=== PATIENT | female | born 1985 | race Caucasian/White ===

== ENCOUNTER 2016-10-19 23:53 | Emergency (ER) | payer SELFPAY ==
[~2016-10-19] VITALS: Ht 175.3 cm; Wt 94.0 kg
[2016-10-20] MEDS ORDERED: ONDANSETRON HCL 4MG/2ML VIAL IV STA (00:13)
[2016-10-20] MEDS ORDERED: SODIUM CHLORIDE 0.9% 1,000 ML IV ONE ×2 (00:13→01:19)
[2016-10-20] MEDS ORDERED: VISCOUS LIDOCAINE 2% 15 ML UDC PO STA (00:13)
[2016-10-20] MEDS ORDERED: MAGNESIUM/ALUMINUM HYDROXIDE/SIMETHICONE 30ML UDC PO STA (00:13)
[2016-10-20 00:41] LABS: BASOPHILS % 0.9 % (0.0-2.0); EOSINOPHILS % 1.7 % (0.0-5.0); HEMATOCRIT. 36.8 % (36.0-48.0); HEMOGLOBIN. 12.2 g/dL (12.0-16.0); LYMPHOCYTES % 24.4 % (20.0-50.0); MEAN CORPUSCULAR HEMOGLOBIN 27.3 pg (28.0-32.0); MEAN CORPUSCULAR VOLUME 82.1 fL (81.0-99.0); MEAN PLATELET VOLUME 9.1 fl (7.4-10.4); MONOCYTES % 9.7 % (2.0-8.0); NEUTROPHILS % 63.3 % (40.0-76.0); PLATELET 233 x1000/uL (130-400); RED BLOOD CELL COUNT 4.49 mill/uL (4.2-5.4); RED CELL DISTRIBUTION WIDTH 14.9 % (11.6-14.6)
[2016-10-20 00:46] LABS: CHLORIDE 107 mEq/L (98-107)
[2016-10-20 00:54] LABS: CARBON DIOXIDE 23 mEq/L (21-32); CREATINE KINASE 170 IU/L (26-192); ETHANOL BLOOD 165 mg/dL
[2016-10-20 00:59] LABS: AMMONIA 42 uMol/L (<32)
[2016-10-20 01:02] LABS: HCG SCREEN NEGATIVE
[2016-10-20] MEDS ORDERED: LACTULOSE 20G/30ML UDC PO NR (01:30)
[2016-10-20] MEDS ORDERED: SODIUM CHLORIDE 0.9% 1,000 ML IV NR (02:34)
[2016-10-20 03:57] VITALS: BP 122/62
== END 2016-10-20 04:01 | disposition home or self-care (01) ==
LOC: ER 23:53
DX: T51.0X1A Toxic effect of ethanol, accidental (unintentional), initial encounter (principal); E87.2 Acidosis; E72.20 Disorder of urea cycle metabolism, unspecified; Y92.018 Other place in single-family (private) house as the place of occurrence of the external cause
CPT/HCPCS: 36415; 70450; 71010; 74176; 80053; 82140; 82550; 82962; 83605; 83690; 84703; 85025; 93005; 96361; 96374; 99291; G0482; J2405; J7030; Z7610